=== PATIENT | female | born 1940 | race Two or more races ===

== ENCOUNTER 2021-12-06 07:45 | Inpatient (IN) | payer OTHER ==
[~2021-12-06] VITALS: Ht 160 cm; Wt 110.7 kg
[2021-12-06] MEDS ORDERED: SYNTHROID75 MCG PO (09:46)
[2021-12-06] MEDS ORDERED: DORZOLAMIDE HCL10 ML OP (09:46)
[2021-12-06] MEDS ORDERED: ZOLOFT50 MG PO (09:47)
[2021-12-06] MEDS ORDERED: ALPHAGAN P5 M2 OP (09:47)
[2021-12-12] MEDS ORDERED: XARELTO10 MG PO (06:29)
[2021-12-12] MEDS ORDERED: INTEGRA PLUS C1 EACH PO (06:29)
[2021-12-12] MEDS ORDERED: BACTRIM DS TAB1 EACH PO (06:29)
[2021-12-12] MEDS ORDERED: OXYC1TAB9 PO (06:29)
== END 2021-12-12 14:35 | DRG 470 ==
LOC: SURH 12-10 06:16 → O/R 12-10 06:16 → SURH 12-10 07:45
PROVIDERS: ADMIT Orthopaedic Surgery Sports Medicine; ATTEND Orthopaedic Surgery Sports Medicine
PROC: 0SRC0J9 Replacement of Right Knee Joint with Synthetic Substitute, Cemented, Open Approach (ICD-10-PCS; principal; 2021-12-10 16:00)
DX: M17.11 Unilateral primary osteoarthritis, right knee (principal); E03.9 Hypothyroidism, unspecified; Z96.659 Presence of unspecified artificial knee joint; Z20.822 Contact with and (suspected) exposure to COVID-19